=== PATIENT | female | born 1985 | race Caucasian/White ===

== ENCOUNTER 2024-02-07 06:10 | Day surgery (SDC) | payer OTHER, SELFPAY ==
[2024-01-27 08:46] LABS: % Basophils 0.8 % (0-2); % Eosinophils 4.4 % (0-6); % Immature Granulocytes 0.3 % (0-0.5); % Monocytes 7.6 % (1.7-9.3); % Neutrophils 48.9 % (42.2-75.2); Absolute Basophils 0.1 10^3/uL (0-0.2); Absolute Eosinophils 0.3 10^3/uL (0-0.7); Absolute Lymphocytes 2.2 10^3/uL (1.2-3.4); Absolute Monocytes 0.5 10^3/uL (0.1-0.6); Absolute Neutrophils 2.9 10^3/uL (1.4-6.5); Hematocrit 26.3 % (37.0-47.0); Hemoglobin 7.8 g/dL (12.0-16.0); Mean Corp Hgb Conc. 29.7 g/dL (33.0-37.0); Mean Corpuscular Hgb 20.7 pg (27.0-31.0); Mean Corpuscular Volume 69.8 fL (81.0-99.0); Mean Platelet Volume 9.7 fL (7.4-10.4); Nucleated Red Blood Cells % 0 %; Platelet Count 462 10^3/uL (130-400); Red Blood Cell Count 3.77 10^6/uL (4.20-5.40); Red Cell Dist. Width 19.6 % (11.5-14.5); White Blood Cell Count 5.9 10^3/uL (4.8-10.8)
[2024-01-27 09:29] LABS: Blood Urea Nitrogen 13 mg/dl (7-17); Calcium 8.4 mg/dl (8.4-10.2); Carbon Dioxide 29 mmol/L (22-30); Chloride 106 mmol/L (98-107); Glucose 86 mg/dl (70-99); Potassium 4.4 mmol/L (3.5-5.1); Sodium 141 mmol/L (135-145); eGFR > 60.00
[2024-01-27 13:40] VITALS: BMI 33.2
--- NOTE | 2024-01-29 11:00 | PTCARENOTE ---
Hgb 7.8 & hct 26.3 collected on 01/27/24; Nadine at 's office notified.
--- NOTE | 2024-01-31 14:02 | PTCARENOTE ---
Abnormal Hgb 7.8 done 01/27/24, reported to Dr Vargas, no further testing needed.
[2024-02-07 07:00] VITALS: BP 125/83
[2024-02-07 07:11] VITALS: BMI 33.2
[2024-02-07 08:01] VITALS: BP 99/54
[2024-02-07 08:15] VITALS: BP 102/75
[2024-02-07 08:30] VITALS: BP 114/86
[2024-02-07 08:42] VITALS: BP 118/79
== END 2024-02-07 09:40 | disposition home or self-care (01) ==
LOC: SDS 06:10
PROVIDERS: ATTENDING PHYSICIAN Obstetrics & Gynecology; FAMILY PHYSICIAN Family Medicine
DX: N85.8 Other specified noninflammatory disorders of uterus (principal)
CPT/HCPCS: 58558; 88305; 36415; 80048; 85025; 86850; 86900; 86901

== ENCOUNTER → 2024-05-20 09:15 | Outpatient (REF) | payer OTHER, SELFPAY | LOC: HWRAD 09:15 | PROVIDERS: FAMILY PHYSICIAN Family Medicine | DX: O09.00 Supervision of pregnancy with history of infertility, unspecified trimester (principal) | CPT/HCPCS: 76801; 76817 ==

== ENCOUNTER → 2024-06-29 13:25 | Outpatient (REF) | payer BC, SELFPAY | LOC: PNTC 13:25 | PROVIDERS: ATTENDING PHYSICIAN Obstetrics & Gynecology | DX: Z36.0 Encounter for antenatal screening for chromosomal anomalies (principal); Z36.82 Encounter for antenatal screening for nuchal translucency | CPT/HCPCS: 76801; 76813 ==

== ENCOUNTER → 2024-07-23 13:40 | Outpatient (REF) | payer BC, SELFPAY | LOC: PNTC 13:40 | PROVIDERS: ATTENDING PHYSICIAN Obstetrics & Gynecology | DX: Z33.3 Pregnant state, gestational carrier (principal); O09.529 Supervision of elderly multigravida, unspecified trimester | CPT/HCPCS: 76805 ==

== ENCOUNTER → 2024-08-25 13:39 | Outpatient (REF) | payer BC, SELFPAY | LOC: PNTC 13:39 | PROVIDERS: ATTENDING PHYSICIAN Obstetrics & Gynecology | DX: O99.210 Obesity complicating pregnancy, unspecified trimester (principal); O09.819 Supervision of pregnancy resulting from assisted reproductive technology, unspecified trimester; Z33.3 Pregnant state, gestational carrier; Z53.31 Laparoscopic surgical procedure converted to open procedure | CPT/HCPCS: 76811; 76817 ==

== ENCOUNTER → 2024-08-28 18:15 | Outpatient (REF) | payer OTHER, BC, SELFPAY | LOC: MRI 18:15 | PROVIDERS: ATTENDING PHYSICIAN Obstetrics & Gynecology; FAMILY PHYSICIAN Family Medicine | DX: R19.00 Intra-abdominal and pelvic swelling, mass and lump, unspecified site (principal) | CPT/HCPCS: 72195 ==

== ENCOUNTER → 2024-10-15 09:16 | Outpatient (REF) | payer OTHER, BC, SELFPAY | LOC: PNTC 09:16 | PROVIDERS: ATTENDING PHYSICIAN Obstetrics & Gynecology | DX: Z33.3 Pregnant state, gestational carrier (principal) | CPT/HCPCS: 76816 ==

== ENCOUNTER → 2024-11-17 09:07 | Outpatient (REF) | payer OTHER, BC, SELFPAY | LOC: PNTC 09:07 | PROVIDERS: ATTENDING PHYSICIAN Obstetrics & Gynecology | DX: Z33.3 Pregnant state, gestational carrier (principal) | CPT/HCPCS: 76816 ==

== ENCOUNTER → 2024-12-01 09:35 | Outpatient (REF) | payer OTHER, BC, SELFPAY | LOC: PNTC 09:35 | PROVIDERS: ATTENDING PHYSICIAN Obstetrics & Gynecology; PRIMARYCARE PHYSICIAN Family Medicine | DX: Z33.3 Pregnant state, gestational carrier (principal); O09.523 Supervision of elderly multigravida, third trimester; O99.213 Obesity complicating pregnancy, third trimester; O09.813 Supervision of pregnancy resulting from assisted reproductive technology, third trimester; O99.843 Bariatric surgery status complicating pregnancy, third trimester; O10.013 Pre-existing essential hypertension complicating pregnancy, third trimester | CPT/HCPCS: 59025; 76815 ==

== ENCOUNTER → 2024-12-08 10:31 | Outpatient (REF) | payer OTHER, BC, SELFPAY | LOC: PNTC 10:31 | PROVIDERS: ATTENDING PHYSICIAN Obstetrics & Gynecology; PRIMARYCARE PHYSICIAN Family Medicine | DX: Z33.3 Pregnant state, gestational carrier (principal); O09.523 Supervision of elderly multigravida, third trimester; O99.213 Obesity complicating pregnancy, third trimester; O09.813 Supervision of pregnancy resulting from assisted reproductive technology, third trimester; O99.843 Bariatric surgery status complicating pregnancy, third trimester; O10.013 Pre-existing essential hypertension complicating pregnancy, third trimester | CPT/HCPCS: 59025; 76815 ==

== ENCOUNTER → 2024-12-15 08:17 | Outpatient (REF) | payer OTHER, BC, SELFPAY | LOC: PNTC 08:17 | PROVIDERS: ATTENDING PHYSICIAN Obstetrics & Gynecology; PRIMARYCARE PHYSICIAN Family Medicine | DX: Z33.3 Pregnant state, gestational carrier (principal); O09.523 Supervision of elderly multigravida, third trimester; O99.213 Obesity complicating pregnancy, third trimester; O09.813 Supervision of pregnancy resulting from assisted reproductive technology, third trimester; O99.843 Bariatric surgery status complicating pregnancy, third trimester; O10.013 Pre-existing essential hypertension complicating pregnancy, third trimester | CPT/HCPCS: 59025; 76816 ==

== ENCOUNTER → 2024-12-17 10:48 | Outpatient (REF) | payer OTHER, SELFPAY | LOC: OHS 10:48 | PROVIDERS: ATTENDING PHYSICIAN Nurse Practitioner Family | DX: Z23 Encounter for immunization (principal) | CPT/HCPCS: 36415; 86480; 86735; 86762; 86765; 86787 ==

== ENCOUNTER → 2024-12-22 10:20 | Outpatient (REF) | payer OTHER, BC, SELFPAY | LOC: PNTC 10:20 | PROVIDERS: ATTENDING PHYSICIAN Obstetrics & Gynecology | DX: Z33.3 Pregnant state, gestational carrier (principal); O09.523 Supervision of elderly multigravida, third trimester; O99.213 Obesity complicating pregnancy, third trimester; O09.813 Supervision of pregnancy resulting from assisted reproductive technology, third trimester; O99.843 Bariatric surgery status complicating pregnancy, third trimester; O10.013 Pre-existing essential hypertension complicating pregnancy, third trimester | CPT/HCPCS: 59025; 76815 ==

== ENCOUNTER → 2024-12-29 10:18 | Outpatient (REF) | payer BC, SELFPAY | LOC: PNTC 10:18 | PROVIDERS: ATTENDING PHYSICIAN Obstetrics & Gynecology | DX: Z33.3 Pregnant state, gestational carrier (principal); O09.523 Supervision of elderly multigravida, third trimester; O99.213 Obesity complicating pregnancy, third trimester; O09.813 Supervision of pregnancy resulting from assisted reproductive technology, third trimester; O99.843 Bariatric surgery status complicating pregnancy, third trimester; O10.013 Pre-existing essential hypertension complicating pregnancy, third trimester | CPT/HCPCS: 59025; 76815 ==

== ENCOUNTER 2024-12-31 19:03 | Inpatient (IN) | payer BC, SELFPAY ==
[2024-12-31 19:46] VITALS: BP 128/87; BMI 40.4
[2024-12-31 20:35] LABS: Hematocrit 36.2 % (37.0-47.0); Hemoglobin 12.5 g/dL (12.0-16.0); Mean Corp Hgb Conc. 34.5 g/dL (33.0-37.0); Mean Corpuscular Volume 88.3 fL (81.0-99.0); Nucleated Red Blood Cells % 0 %; Platelet Count 320 10^3/uL (130-400); Red Cell Dist. Width 12.5 % (11.5-14.5)
[2024-12-31] MEDS: TUMS CHEWABLE TABLET 400 MG PO (20:54)
[2024-12-31] MEDS: CYTOTEC 25 MICROGRAM VAG (21:55)
[2024-12-31 23:01] LABS: ALT (SGPT) 11 U/L (0-35); AST (SGOT) 19 U/L (14-36); Albumin 3.4 g/dl (3.5-5.0); Alkaline Phosphatase 152 U/L (38-126); Blood Urea Nitrogen 4 mg/dl (7-17); Calcium 9.2 mg/dl (8.4-10.2); Carbon Dioxide 20 mmol/L (22-30); Chloride 107 mmol/L (98-107); Estimated Creatinine Clearance > 125 ml/min; Glucose 93 mg/dl (70-99); Potassium 3.8 mmol/L (3.5-5.1); Sodium 129 mmol/L (135-145); Total Protein 6.4 g/dl (6.3-8.2); eGFR > 60.00
[2025-01-01] MEDS: CYTOTEC 50 MICROGRAM PO ×2 (02:08→06:01)
[2025-01-01] MEDS: LR 1000 IV ×3 (09:15→16:35)
[2025-01-01] MEDS: SUBLIMAZE 100 MCG EPIDURAL (10:23)
[2025-01-01] MEDS: FENTANYL/BUPIVACAINE 100 EPIDURAL (10:24)
[2025-01-01] MEDS: PITOCIN 30 UNITS/NSS 500 ML IV ×2 (12:08→21:03)
--- NOTE | 2025-01-01 13:41 | CM ---
CM met with Skyler, the gestational carrier, Adolfo, the father of the baby, and Yvonne, the mother of the baby.
Skyler has received an epidural and per RN, the child may be born by the end of today.
Skyler has the Gestational Carrier Worksheet to complete.
Plan: CM to follow up with the parents tomorrow to coordinate any needs identified.
[2025-01-01] MEDS: CYTOTEC PO ×2 (15:14)
[2025-01-01] MEDS: TUMS CHEWABLE TABLET 400 MG PO (21:09)
[2025-01-01] MEDS: COLACE 100 MG PO (21:31)
[2025-01-01] MEDS: TYLENOL 650 MG PO (21:31)
[2025-01-01] MEDS: MOTRIN 600 MG PO (21:32)
[2025-01-02] MEDS: TYLENOL 650 MG PO ×3 (04:24→20:26)
[2025-01-02] MEDS: TUMS CHEWABLE TABLET 400 MG PO (04:25)
[2025-01-02] MEDS: MOTRIN 600 MG PO ×2 (04:25→20:13)
[2025-01-02 04:41] LABS: Hematocrit 36.5 % (37.0-47.0); Hemoglobin 11.8 g/dL (12.0-16.0)
[2025-01-02] MEDS: THERAGRAN 1 TABLET PO (08:59)
[2025-01-02] MEDS: FEOSOL 325 MG PO (08:59)
[2025-01-02] MEDS: COLACE 100 MG PO ×2 (08:59→20:13)
[2025-01-02] MEDS: PROTONIX 40 MG PO (08:59)
--- NOTE | 2025-01-02 10:05 | CM ---
Addendum entered by Kristin Gentile 01/03/25 10:19:
CM met with the Skyler and Mr. Magana at bedside today. JEFERSON is excited and elated at the of his daughter. Plan for racing board marker is with [facility] at . Appointment to be made on Saturday per father and Skyler (surrogate).
Original Note:
CM spoke with surrogate and she indicated that she had completed paperwork and would provide the document to nursing. CM reviewed policy with nurse and all paperwork completed. CM will talk to baby father about racing board marker and address. Surrogate
indicated that she was doing well and no further questions at this time. CM will continue to follow for discharge planning needs.
Plan; discharge with no needs anticipated.
[2025-01-03] MEDS: TYLENOL 650 MG PO ×2 (02:19→08:01)
[2025-01-03] MEDS: MOTRIN 600 MG PO ×2 (02:19→08:01)
[2025-01-03] MEDS: FEOSOL 325 MG PO (08:01)
[2025-01-03] MEDS: COLACE 100 MG PO (08:01)
[2025-01-03] MEDS: PROTONIX 40 MG PO (08:01)
[2025-01-03] MEDS: THERAGRAN 1 TABLET PO (08:01)
[2025-01-05 14:04] LABS: Syphilis/T. pallidum Ab Reflex Negative (Negative)
== END 2025-01-03 14:29 | disposition home or self-care (01) | DRG 807 ==
LOC: LDRP 19:03
PROVIDERS: Obstetrics & Gynecology; ADMITTING PHYSICIAN Obstetrics & Gynecology
PROC: 3E0P7VZ Introduction of Hormone into Female Reproductive, Via Natural or Artificial Opening (ICD-10-PCS; 2024-12-31)
PROC: 10E0XZZ Delivery of Products of Conception, External Approach (ICD-10-PCS; 2025-01-01)
PROC: 10907ZC Drainage of Amniotic Fluid, Therapeutic from Products of Conception, Via Natural or Artificial Opening (ICD-10-PCS; 2025-01-01)
PROC: 0KQM0ZZ Repair Perineum Muscle, Open Approach (ICD-10-PCS; 2025-01-01)
PROC: 0UQMXZZ Repair Vulva, External Approach (ICD-10-PCS; 2025-01-01)
DX: O99.844 Bariatric surgery status complicating childbirth (principal); Z37.0 Single live birth; Z3A.39 39 weeks gestation of pregnancy; O99.214 Obesity complicating childbirth; O69.2XX0 Labor and delivery complicated by other cord entanglement, with compression, not applicable or unspecified; O70.1 Second degree perineal laceration during delivery; D27.0 Benign neoplasm of right ovary; O99.892 Other specified diseases and conditions complicating childbirth; O76 Abnormality in fetal heart rate and rhythm complicating labor and delivery; O13.5 Gestational [pregnancy-induced] hypertension without significant proteinuria, complicating the puerperium
CPT/HCPCS: 36415; 80053; 82570; 84156; 85014; 85018; 85025; 86780; 86850; 86900; 86901; 88307